=== PATIENT | female | born 1955 | race Caucasian/White ===

== ENCOUNTER → 2017-04-21 | Outpatient (CLI) | payer BC ==
--- NOTE | 2017-04-21 13:26 | PCVCIMAG ---
APPROVED REPORT Exam: Stress Echocardiogram Indication: CAD s/p PCI, Aortic insufficiency Stress Nurse: Halie Reeves RN Status: routine HR: 71 bpm Rhythm: NSR Medical History Medical History: CAD s/p stent Testing Details Test: Exercise stress testing was performed using a Mookie protocol. HR Resting HR: 71 bpmMax Heart Rate (APMHR): 161 bpm Max HR Achieved: 166 bpmTarget HR (85% APMHR): 136 bpm % of APMHR: 103 HR response to stress: Normal HR response to stress BP Resting BP: 106/70 mmHg ECG Resting ECG: Sinus Rhythm Stress ECG: Sinus Rhythm ST Change: Inferior and lateral lds, horizontal ST depression Maximum ST Deviation: 2 mm Arrhythmia: None Clinical Reason for Termination: Maximal effort Stress Symptoms: Dyspnea Exercise duration: 13:29 min Exercise capacity: 17.2 METs Overall Exercise Capacity for Age: Good Angina Score: None Stress ECG Conclusion 1. Clinical response: Nonischemic 2. Electrocardiographic response: Ischemic and unchanged from prior stress studies consistent with false positive response 3. Echocardiographic response: Nonischemic 4. Stress echocardiogram: Low risk, nonischemic Briscoe Treadmill Score is 3.0 which is Moderate risk. Pre-Stress Echo The resting Echocardiogram showed normal left ventricular contractility with an estimated Ejection Fraction of about >55%. Post-Stress Echo The stress Echocardiogram showed normal left ventricular contractility with an estimated Ejection Fraction of about 65%. Conclusion Clinical Response: Non-ischemic Exercise Capacity: Superior Stress ECG Response: Ischemic Stress Echo Images: Non-ischemic Other Information Study Quality: Good
== END | disposition home or self-care (01) ==
LOC: PCVCIMAG 11:18
PROVIDERS: ATTEND Internal Medicine
DX: I25.10 Atherosclerotic heart disease of native coronary artery without angina pectoris (principal); Z95.5 Presence of coronary angioplasty implant and graft
CPT/HCPCS: 93325; 93351

== ENCOUNTER → 2019-05-02 | Outpatient (CLI) | payer BC ==
--- NOTE | 2019-05-02 11:13 | PCVCIMAG ---
APPROVED REPORT Study performed: 05/02/2019 10:09:36 Exam: Stress Echocardiogram Indication: CAD s/p PCI, mild AI, hlp Patient Location: Echo lab Stress Nurse: Halie Reeves RN Status: routine Ht: 5 ft 5 in HR: 65 bpm BP: 130/80 mmHg Rhythm: NSR Procedure The patient underwent an Exercise Stress Test using the Mookie Protocol. Blood pressure, heart rate, and EKG were monitored. An Echocardiogram was performed by tissue recovery technician in four stages in quad fashion. At peak stress, four selected images were obtained and placed side by side with resting images for comparison. Stress Test Details Stress Test: Exercise stress testing was performed using a Mookie protocol. HR Resting HR: 65 bpmMax Heart Rate (APMHR): 159 bpm Max HR Achieved: 171 bpmTarget HR (85% APMHR): 135 bpm % of APMHR: 107 Recovery HR: 90 bpm HR response to stress: Normal HR response to stress BP Resting BP: 130/80 mmHg Max BP: 166/78 mmHg Recovery BP: 122/76 mmHg BP response to stress: Normal blood pressure response to stress. ECG Resting ECG: Sinus Rhythm Stress ECG: Sinus Rhythm ST Change: inferior and lateral horizontal ST depression Maximum ST Deviation: 2 mm Arrhythmia: None Recovery ECG: Sinus Rhythm Recovery ST Change: Normal Recovery ST Deviation: 0 mm Recovery Arrhythmia: None Clinical Reason for Termination: Maximal effort Stress Symptoms: Dyspnea Exercise duration: 12 min 41 sec Highest Stage Achieved: Stage 5: 5.0 mph at 18% grade. Exercise capacity: 15.9 METs Overall Exercise Capacity for Age: Excellent Scale: Active Angina Score: None Stress ECG Conclusion Clinical: Non-ischemic ECG: Ischemic. History of false positive electrocardiographic response with exercise Briscoe Treadmill Score is 2.0 which is Moderate risk. Pre-Stress Echo The resting Echocardiogram showed normal left ventricular contractility with an estimated Ejection Fraction of about >55%. Normal wall motion in all segments on baseline images. Post-Stress Echo The stress Echocardiogram showed normal left ventricular contractility with an estimated Ejection Fraction of about 65%. Normal augmentation of wall motion in all segments on post stress images. Clinical No clinical or ECG evidence for ischemia. Conclusion Clinical Response: Non-ischemic Exercise Capacity: Average Stress ECG Response: Ischemic Stress Echo Images: Non-ischemic The left ventricle is normal in size and wall thickness in both the rest and stress images. Normal stress echocardiogram with maximal exercise stress. Abnormal electrocardiographic response, long-standing, consistent with false positive Other Information Study Quality: Adequate <Conclusion> The left ventricle is normal in size and wall thickness in both the rest and stress images. Normal stress echocardiogram with maximal exercise stress. Abnormal electrocardiographic response, long-standing, consistent with false positive
== END | disposition home or self-care (01) ==
LOC: PCVCIMAG 10:02
PROVIDERS: ATTEND Internal Medicine
DX: I25.10 Atherosclerotic heart disease of native coronary artery without angina pectoris (principal); E78.5 Hyperlipidemia, unspecified; I35.2 Nonrheumatic aortic (valve) stenosis with insufficiency; I35.1 Nonrheumatic aortic (valve) insufficiency; Z95.5 Presence of coronary angioplasty implant and graft; Z88.0 Allergy status to penicillin
CPT/HCPCS: 93325; 93351